=== PATIENT | female | born 1970 | race Caucasian/White ===

== ENCOUNTER 2020-01-05 08:07 | Emergency (ER) | payer MEDICAID ==
[~2020-01-05] VITALS: Ht 167.6 cm; Wt 86.6 kg
[2020-01-05] MEDS ORDERED: ONDANSETRON HCL/PF 4 MG/2 ML VIAL ONE (08:19)
[2020-01-05] MEDS ORDERED: PANTOPRAZOLE 40 MG VIAL ONE (08:19)
[2020-01-05] MEDS ORDERED: MORPHINE SULFATE INJ 4 MG/ML DISP.SYRIN ONE (08:20)
--- NOTE | 2020-01-05 08:25 | NUR ---
[id number] from work c/o chest pain since this morning, aspirin, nitro x 2 given. chest pain free at this time. On room air, breathing evenly and unlabored. connected to the monitor and pulse ox, kept comfortable, will continue to monitor accordingly.
[2020-01-05] MEDS: PANTOPRAZOLE 40 MG VIAL IV ONE (08:26)
--- NOTE | 2020-01-05 08:26 | NUR ---
patient ambulatory with steady gait
[2020-01-05] MEDS: ONDANSETRON HCL/PF 4 MG/2 ML VIAL IVP ONE (08:27)
[2020-01-05] MEDS: MORPHINE SULFATE INJ 2 MG/ML DISP.SYRIN IV ONE (08:34)
[2020-01-05 08:40] LABS: BASOPHILS # (AUTO) 0.1 /CMM (0.0-0.2); BASOPHILS % (AUTO) 0.7 % (0.0-2.0); EOSINOPHILS % (AUTO) 3.7 % (0.0-6.0); HEMATOCRIT 37 % (33-45); HEMOGLOBIN 12.6 g/dL (11.5-14.8); LYMPHOCYTES # (AUTO) 2.9 /CMM (0.8-4.8); LYMPHOCYTES % (AUTO) 33.4 % (20.0-44.0); MEAN CORPUSCULAR HGB CONC 34 g/dl (31.0-36.0); MEAN CORPUSCULAR VOLUME 80 fL (82-100); MONOCYTES # (AUTO) 0.6 /CMM (0.1-1.30); MONOCYTES % (AUTO) 6.7 % (2.0-12.0); NEUTROPHILS # (AUTO) 4.8 /CMM (1.8-8.9); NEUTROPHILS % (AUTO) 55.5 % (43.0-81.0); PLATELET COUNT (AUTO) 372 /CMM (150-450); RED BLOOD CELL COUNT(AUTO) 4.66 MIL/uL (4.0-5.2); WHITE BLOOD COUNT (AUTO) 8.6 K/uL (4.3-11.0)
[2020-01-05 08:56] LABS: APPEARANCE,URINE Clear (CLEAR); BILIRUBIN,URINE Negative (NEGATIVE); BLOOD, URINE Negative Ery/uL (NEGATIVE); COLOR,URINE Yellow (YELLOW); KETONES,URINE Negative (NEGATIVE); LEUKOCYTE ESTERASE ,URINE Trace (NEGATIVE); NITRITE, URINE Negative (NEGATIVE); PROTEIN,URINE 30 mg/dl (NEGATIVE); UGLUCOSE Negative (NEGATIVE); UROBILINOGEN,URINE 0.2 EU/dL (0.2)
[2020-01-05 09:01] LABS: CALCIUM, SERUM 9.5 mg/dL (8.5-10.1); CARBON DIOXIDE 28 mmol/L (21-32); CHLORIDE 102 mmol/L (98-107); CREATININE 0.7 mg/dL (0.6-1.3); POTASSIUM 3.4 mmol/L (3.5-5.1); SODIUM SERUM 137 mmol/L (136-145); UREA NITROGEN, BLOOD 9 mg/dL (7-18)
[2020-01-05 09:06] LABS: BACTERIA,URINE Few /HPF (None Seen); RBC,URINE 0-2 /HPF (0-2); SQUAMOUS EPITHELIAL CELL,UR Few /HPF (None Seen)
[2020-01-05 09:08] LABS: ALANINE AMINOTRANSFERASE 29 U/L (12-78); ALBUMIN 4.4 g/dL (3.4-5.0); ALKALINE PHOSPHATASE 78 U/L (46-116); ASPARTATE AMINOTRANSFERASE 25 U/L (15-37); BILIRUBIN,DIRECT 0.1 mg/dL (0.0-0.2); BILIRUBIN,TOTAL 0.9 mg/dL (0.2-1.0); GLUCOSE 121 mg/dL (74-106); LIPASE 90 U/L (73-393); TOTAL PROTEIN, SERUM 8.9 g/dL (6.4-8.2)
[2020-01-05 09:36] VITALS: BP 133/84
--- NOTE | 2020-01-05 09:36 | NUR ---
Patient discharged to home in stable condition. Written and verbal after care instructions given. Patient verbalizes understanding of instruction.IV removed. Catheter intact and site benign. Pressure and 4x4 applied to site. No bleeding noted.
== END 2020-01-05 09:36 | disposition home or self-care (01) ==
LOC: ER 08:10
DX: R10.13 Epigastric pain (principal); I10 Essential (primary) hypertension; R07.89 Other chest pain
CPT/HCPCS: 36415; 71045; 80048; 80076; 81001; 82962; 83690; 84484; 85025; 93005; 96374; 96375; 99285; C9113; J2270; J2405; 81000-TC